=== PATIENT | female | born 1990 | race Caucasian/White ===

== ENCOUNTER 2022-12-07 04:14 | Emergency (ER) | payer OTHER ==
[2022-12-07 04:24] VITALS: BP 130/85; PULSE 62; RESP 18; TEMP 97.7; BMI 29.2
[2022-12-07] MEDS ORDERED: CARBAMIDE PEROXIDE 6.5% OTIC 15 ML BOTTLE AS ONE (04:51)
== END 2022-12-07 05:53 | disposition home or self-care (01) ==
LOC: JER 04:14
DX: O99.891 Other specified diseases and conditions complicating pregnancy (principal); H60.92 Unspecified otitis externa, left ear; Z3A.08 8 weeks gestation of pregnancy
CPT/HCPCS: 99283-25